=== PATIENT | female | born 1980 | race Caucasian/White ===

== ENCOUNTER 2018-02-27 07:17 | Emergency (ER) | payer SELFPAY ==
[~2018-02-27] VITALS: Ht 162.6 cm; Wt 104.5 kg
[~2018-02-27 07:17] MED LIST: CLINDAMYCIN150 MG PO; CORTISPORIN OTI10 ML OT; NORCO 325 MG-51 TAB PO; SYNTHROID 0.0.025 MG PO
[2018-02-27 07:24] VITALS: BP 160/95
[2018-02-27 08:10] VITALS: PULSE 93; TEMP 97.9
== END 2018-02-27 08:06 | disposition home or self-care (01) ==
LOC: COL.ER 07:17
DX: S39.012A Strain of muscle, fascia and tendon of lower back, initial encounter (principal); H61.22 Impacted cerumen, left ear; H60.91 Unspecified otitis externa, right ear; F17.210 Nicotine dependence, cigarettes, uncomplicated; F12.90 Cannabis use, unspecified, uncomplicated; X58.XXXA Exposure to other specified factors, initial encounter

== ENCOUNTER → 2021-07-20 | Outpatient (CLI) | payer OTHER | LOC: COL.RAD 07:55 | DX: M47.812 Spondylosis without myelopathy or radiculopathy, cervical region (principal) | CPT/HCPCS: A9585 ==

== ENCOUNTER 2023-12-23 02:21 | Inpatient (IN) | payer SELFPAY ==
[~2023-12-23] VITALS: Ht 162.6 cm; Wt 83.4 kg
[2023-12-23] VITALS (8 sets, daily range): BP systolic 128–163; BP diastolic 85–104; PULSE 78–93; TEMP 96.8–98.5
[2023-12-23] MEDS ORDERED: fentaNYL 50 MCG/ML 2 ML VIAL IV ONE (02:45)
[2023-12-23 03:00] LABS: BASO # 0.1 K/mm3 (0.0-0.2); BASO % 0.6 % (0.0-2.0); EOS # 0.3 K/mm3 (0.0-0.7); EOS % 2.3 % (0.0-4.0); GRAN # 9.6 K/mm3 (1.4-6.5); GRAN % 68.9 % (42.2-75.2); HEMOGLOBIN 11.7 g/dl (12.5-16.0); LYMPH # 2.9 K/mm3 (1.2-3.4); MEAN CELL VOLUME 86 fl (80.0-100.0); MEAN CORPUSCULAR HEMOGLOBIN 28 pg (27-31); MEAN CORPUSCULAR HGB CONC 33 g/dl (33.0-37.0); MEAN PLATELET VOLUME 11.9 fl (7.4-10.4); MONO % 6.9 % (1.7-9.3); PLATELET COUNT 228 K/mm3 (130-400); RED BLOOD COUNT 4.15 M/mm3 (4.10-5.30); REDCELL DISTRIBUTION WIDTH-CV 12.8 % (11.5-14.5)
[2023-12-23 03:01] LABS: HEMATOCRIT 35.5 % (37.0-47.0)
[2023-12-23 03:18] LABS: ALANINE AMINOTRANSFERASE 14 U/L (0-55); ALBUMIN 3.3 gm/dL (3.5-5.0); ALKALINE PHOSPHATASE 111 U/L (40-150); ANION GAP 13 mmol/L (7-16); AST,SGOT 7 U/L (5-34); BILIRUBIN,TOTAL 0.2 mg/dL (0.2-1.2); BLOOD UREA NITROGEN < 5 mg/dL (7-19); C-REACTIVE PROTEIN 3.75 mg/dL (0.00-0.50); CHLORIDE 100 mmol/L (98-107); CREATININE, serum 0.91 mg/dL (0.57-1.11); POTASSIUM 4.2 mmol/L (3.5-4.5); SODIUM 133 mmol/L (136-145); TOTAL PROTEIN 6.7 gm/dL (6.2-8.1)
[2023-12-23 03:27] LABS: GLUCOSE 542 mg/dL (70-99)
[2023-12-23] MEDS ORDERED: NS 1,000 ML IV ONE (03:31)
[2023-12-23] MEDS ORDERED: NS 1,000 ML IV SCH ×2 (04:15)
[2023-12-23] MEDS ORDERED: Insulin Human Regular/NS 100 ML IV SCH (04:15)
[2023-12-23 04:47] LABS: MAGNESIUM 1.8 mg/dL (1.6-2.6); PHOSPHOROUS 2.7 mg/dL (2.3-4.7)
--- NOTE | 2023-12-23 05:16 | NUR ---
Vancomycin Initial Dosing Pharmacy Note Ordering provider: Lawson Rosales MD Indication/duration: Labial abscess x 5 days Relevant comorbidities: UNK LABS: WBC = 13.9, SCr = 0.91 Recommendation: Will draw troughs and follow levels. Loading dose: 1.5 grams Maintenance dose: 1.25 grams every 12 hours Trough goal: 10-15 ug/mL
[2023-12-23] MEDS ORDERED: Morphine 4 MG/ML VIAL IV PRN (05:30)
[2023-12-23] MEDS ORDERED: Acetaminophen 500 MG TAB PO SCH (05:30)
[2023-12-23] MEDS ORDERED: Ondansetron 4 MG/2 ML VIAL IV PRN (05:30)
--- NOTE | 2023-12-23 06:34 | NUR ---
0500: PT ARRIVED FROM THE er AT THIS TIME, VANCOMYCIN RUNNING AT THIS TIME. AFEBRILE, VSS, PT ALERT AND TALKATIVE. COURTNEY SENIOR DIRECTOR INSIGHT UP TO SEE THE PT AND INTERVIEW. NO ORDERS ON PT AT THIS TIME.
[2023-12-23 06:53] LABS: ANION GAP 11 mmol/L (7-16); BLOOD UREA NITROGEN < 5 mg/dL (7-19); CALCIUM 8.5 mg/dL (8.4-10.2); CHLORIDE 104 mmol/L (98-107); CREATININE, serum 0.76 mg/dL (0.57-1.11); GLUCOSE 320 mg/dL (70-99); POTASSIUM 3.8 mmol/L (3.5-4.5); SODIUM 135 mmol/L (136-145)
[2023-12-23] MEDS ORDERED: Nicotine 21 MG DAILY PATCH TD SCH (09:00)
[2023-12-23 09:39] LABS: ANION GAP 7 mmol/L (7-16); BLOOD UREA NITROGEN < 5 mg/dL (7-19); CALCIUM 7.5 mg/dL (8.4-10.2); CHLORIDE 109 mmol/L (98-107); CREATININE, serum 0.62 mg/dL (0.57-1.11); GLUCOSE 195 mg/dL (70-99); POTASSIUM 3.3 mmol/L (3.5-4.5); SODIUM 137 mmol/L (136-145)
[2023-12-23] MEDS ORDERED: *Potassium Replacement Protocol MC SCH (10:00)
[2023-12-23] MEDS ORDERED: Potassium Bicarbonate/Citrate 20 MEQ Effervescent TAB PO SCH (10:00)
[2023-12-23] MEDS ORDERED: Insulin Glargine-ygfn (Lantus) SQ SCH (10:15)
[2023-12-23] MEDS ORDERED: Glucagon 1 MG VIAL IM PRN (10:15)
[2023-12-23] MEDS ORDERED: Dextrose (Glucose) 15 GM (4 x 3.75 GM) Chewable TABLET PACK PO PRN (10:15)
[2023-12-23] MEDS ORDERED: Dextrose 50% Water 25 GM/50 ML SYRINGE IV PRN (10:15)
--- NOTE | 2023-12-23 10:27 | NUR ---
psychotherapist social worker met with pt to discuss discharge planning. She reports she lives with her , Jcarlos [phone] in [place]. Pt states she does not have a PCP, but went to [facility] when she first moved here. SW provided list of PCP's and urged her to go to the [facility] again as she does not have insurance. Pt obtains medications from [facility] with no difficulties. She reports to be independent with ADLS and use no DME. She does not have a DPOA-HC, but was interested in reviewing it. SW provided copy to pt to review. Pt reports she does not have insurance and works, but is unable to qualify for Medicaid. YESENIA advised senior financial will meet with pt to provide assistance. YESENIA informed senior financial, Kaylee to meet with pt due to self pay. Discharge Plan: home
--- NOTE | 2023-12-23 11:15 | NUR ---
Patient stated she didnt know she was a diabetic but her mom is a diabetic so she knows a little bit about diabetes. she stated that she wanted to be able to eventually control her numbers with diet and excercise. she understands she will most likely be d/cing on insulin. education provided about when to check BG levels. simple education provided on label reading and carb counting. patient does not have a PCP at this time so i gave her a copy of our referral form to take to her pcp if she wants to see us outpatient. will reach out to SW about this as well so i can help patient get into see us outpatient. initial education folder provided for patient to keep and take home. halle, msn, rn
[2023-12-23] MEDS ORDERED: Insulin Lispro (HumaLOG) SQ SCH (12:00)
--- NOTE | 2023-12-23 13:53 | NUR ---
CONSULTED SURIGICAL ASSOC. DR DAVIS FOR CONSULT. STATED HE WANTED OBGYN TO TAKE A LOOK AT [facility] FIRST. THEN CALLED OBGYN , STATED SHE WOULD COME BY FOR CONSULT LATER TODAY. NO NEW ORDERS. PLAN OF CARE ONGOING.
[2023-12-23] MEDS ORDERED: Vancomycin 1.25 GM,Special Dose/Pharmacy Prepared 1.25 GM in NS 250 ML IV SCH (16:00)
[2023-12-23 16:10] LABS: CREATININE, serum 0.71 mg/dL (0.57-1.11); POTASSIUM 4.2 mmol/L (3.5-4.5)
--- NOTE | 2023-12-23 19:51 | NUR ---
EDUATION GIVEN TO MATT HOWE ON WOUND PACKING.
--- NOTE | 2023-12-23 21:18 | NUR ---
Received report from CARLEY Edmonds. Pt is resting in bed with the call light within reach. Pt has NS running at this time. Pt's vitals are stable at this time. Pt has a rankin in place with no kinks in tubing. Will continue pt's care.
[2023-12-24] VITALS (9 sets, daily range): BP systolic 133–155; BP diastolic 79–98; PULSE 80–91; TEMP 98.2–98.7
[2023-12-24 05:17] LABS: ALBUMIN 2.7 gm/dL (3.5-5.0); BILIRUBIN,TOTAL 0.2 mg/dL (0.2-1.2); CREATININE, serum 0.66 mg/dL (0.57-1.11); POTASSIUM 4.1 mmol/L (3.5-4.5); TOTAL PROTEIN 5.8 gm/dL (6.2-8.1)
[2023-12-24 06:11] LABS: BASO % 0.4 % (0.0-2.0); EOS # 0.3 K/mm3 (0.0-0.7); EOS % 3.5 % (0.0-4.0); GRAN # 5.5 K/mm3 (1.4-6.5); GRAN % 60.3 % (42.2-75.2); HEMOGLOBIN 10.6 g/dl (12.5-16.0); LYMPH # 2.8 K/mm3 (1.2-3.4); LYMPH % 30.5 % (20.0-51.0); MEAN CELL VOLUME 87 fl (80.0-100.0); MEAN CORPUSCULAR HEMOGLOBIN 28 pg (27-31); MEAN CORPUSCULAR HGB CONC 32 g/dl (33.0-37.0); MONO # 0.5 K/mm3 (0.1-0.6); MONO % 5.1 % (1.7-9.3); PLATELET COUNT 237 K/mm3 (130-400); REDCELL DISTRIBUTION WIDTH-CV 13.1 % (11.5-14.5)
--- NOTE | 2023-12-24 06:48 | NUR ---
Pt had an uneventful night. Pt's vitals have been stable throughout the night. Pt has NS running at this time. Pt complained of some pain in the vaginal/labia area and also of a migraine. Tylenol was given and seemed to help with the vaginal/labia pain. Pt had adequate urine output and the rankin tubing has no kinks in tubing. Will give report to day shift nurse.
--- NOTE | 2023-12-24 07:10 | NUR ---
Report received from CARLEY Kohler. Pt reports not sleeping well last night. Reports still having pain in labia and headache after having tylenol around 0530. Rates pain /10. Will contact provider for pain relief orders. NS infusing at 150ml/hr to left FA. Conn catheter to dependent drainage with clear yellow urine draining. Pt informed that wound care will come and assess labia abcess this AM. Offers no further complaints. Call light in reach.
--- NOTE | 2023-12-24 10:29 | NUR ---
Initial visit: Patient states she is feeling much better and thanked Electric Serviceman for asking and asked Electric Serviceman to keep her and her family in her prayers.
--- NOTE | 2023-12-24 13:23 | NUR ---
Pt transfered to room 352. Report given to CARLEY Omer. Pt in possession of all belongings at time of transfer.
--- NOTE | 2023-12-24 13:45 | NUR ---
Pt transfered from ICU via WC. Pt settled into room and oriented to call light/bed controls. Pt is A&Ox4. VSS. S1S2 with clear lung sounds. ABD is rounded, soft, and non-tender. Pt denies pain, n/v, headache, dizziness. Pt reports mild discomfort in perineal area due to wound. Pulses palpable in all 4 extremities. No edema. Pt has steady gait and strength. Pt is standby assist. Pt has Conn cath in place with clear, yellow urine. Wound on R labia has drainage with iodiform dressing. Per wound care, change once per day. Wound care changed dressing this AM. Pt to wear mesh underwear with pad and change pad at least twice per day, or PRN. Pt requested shower, PCT aided Pt with covering IV in L forearm - INT. Pt back in bed and comfortable. Pt requested to be left alone to get some rest. Pt has call light in reach.
--- NOTE | 2023-12-24 15:09 | NUR ---
pest control worker helper attended clinical rounding and was informed pt can transfer to the medical floor today. YESENIA was informed pt will need daily dressing changes with packing as reccomended by Wound CareYesenia. YESENIA informed the team pt does not have insurance. YESENIA called [facility] and was informed they cannot do dressing changes. SW called [facility] and they cannot provide wound care. YESENIA spoke with [facility] Dept. and was informed their Reproductive RN was not available and took a message. She informed SW they have not done this before. YESENIA called Yesenia Gomez's office [phone] and left a message for Yesenia regarding reccomendations. YESENIA spoke with Director Shira and was informed Yesenia would be willing to provide education to pt and person providing dressing changes tomorrow during rounding around 8-10am and in the [facility] at 10am or from 2-3:30pm. YESENIA and CARLEY Hunter met with pt to provide information. She reports her gets queasy and cannot do the changes. She states her [id number] was willing, but she has a friend who works in the hospital she will ask. YESENIA provided her information to call as soon as this is done so the pt can get connected with wound care nurse by tomorrow. YESENIA notes Dr. Ha was aware of the above difficulties. YESENIA spoke with nonprofit financial controller, Kaylee and was informed pt will not qualify for Medicaid, but they completed a FAA and she is just wanting on bank statements. Discharge Plan: home with wound care education provided
--- NOTE | 2023-12-24 16:29 | NUR ---
Patient is aware that she will need to have a support person learn to complete daily dressings and confirms that her person will be at the hospital on 12/25/23 at 8:00am and also at 10:00. Worker spoke with Yesenia, wound care nurse and confirmed that she will teach dressing change tomorrow in the hospital and , in the [facility].
[2023-12-25 03:22] VITALS: BP 133/74; PULSE 78; TEMP 97.5
[2023-12-25 03:44] LABS: BASO # 0.1 K/mm3 (0.0-0.2); BASO % 0.6 % (0.0-2.0); EOS # 0.3 K/mm3 (0.0-0.7); EOS % 3.5 % (0.0-4.0); GRAN # 4.2 K/mm3 (1.4-6.5); GRAN % 52.3 % (42.2-75.2); HEMOGLOBIN 10.4 g/dl (12.5-16.0); MEAN CELL VOLUME 85 fl (80.0-100.0); MEAN CORPUSCULAR HEMOGLOBIN 28 pg (27-31); MEAN CORPUSCULAR HGB CONC 33 g/dl (33.0-37.0); MEAN PLATELET VOLUME 11.7 fl (7.4-10.4); MONO # 0.5 K/mm3 (0.1-0.6); MONO % 6.4 % (1.7-9.3); PLATELET COUNT 233 K/mm3 (130-400); RED BLOOD COUNT 3.76 M/mm3 (4.10-5.30); REDCELL DISTRIBUTION WIDTH-CV 13.2 % (11.5-14.5)
[2023-12-25 03:53] LABS: HEMATOCRIT 31.8 % (37.0-47.0)
[2023-12-25 03:58] LABS: ALANINE AMINOTRANSFERASE 14 U/L (0-55); ALBUMIN 2.8 gm/dL (3.5-5.0); ALKALINE PHOSPHATASE 77 U/L (40-150); ANION GAP 6 mmol/L (7-16); AST,SGOT 12 U/L (5-34); BILIRUBIN,TOTAL 0.2 mg/dL (0.2-1.2); BLOOD UREA NITROGEN < 5 mg/dL (7-19); CALCIUM 7.5 mg/dL (8.4-10.2); CHLORIDE 111 mmol/L (98-107); CREATININE, serum 0.61 mg/dL (0.57-1.11); GLUCOSE 125 mg/dL (70-99); POTASSIUM 3.5 mmol/L (3.5-4.5); SODIUM 139 mmol/L (136-145); TOTAL PROTEIN 5.8 gm/dL (6.2-8.1)
[2023-12-25 07:08] VITALS: BP 163/93; PULSE 85; TEMP 97.9
[2023-12-25] MEDS ORDERED: Potassium Bicarbonate/Citrate 20 MEQ Effervescent TAB PO SCH (08:00)
[2023-12-25] MEDS ORDERED: Insulin Glargine-ygfn (Lantus) SQ SCH (09:00)
[2023-12-25] MEDS ORDERED: BACTRIM DS 8001 TAB PO (10:16)
[2023-12-25] MEDS ORDERED: CLEOCIN HCL300 MG PO (10:17)
[2023-12-25] MEDS ORDERED: GLUCOSE TEST ST1 DEV MC (10:26)
[2023-12-25] MEDS ORDERED: NOVOLOG FLEX100 U/ML SQ ×2 (10:26→13:39)
[2023-12-25] MEDS ORDERED: INSULIN PEN NE1 EAC1 MC (10:26)
[2023-12-25] MEDS ORDERED: BD ALCOHOL1 SWA MC (10:26)
[2023-12-25] MEDS ORDERED: GLUCAGON EMERGEN1 M1 SQ (10:26)
[2023-12-25] MEDS ORDERED: LANCETS MC (10:26)
[2023-12-25] MEDS ORDERED: FREESTYLE PREC1 EAC5 MC (10:26)
[2023-12-25] MEDS ORDERED: INSULIN GL100 UNIT/2 SQ ×2 (10:26→13:39)
--- NOTE | 2023-12-25 15:09 | NUR ---
PT WAS TAUGHT HOW TO PACK LABIAL ABSCESS WOUND BY WOUND CARE TEAM THIS MORNING. THEY WILL MEET WITH AND MOTHER IN LAW WITH THE PATIENT 12/26/23 IN [facility] TO GO OVER IT AGAIN TO ENSURE BOTH FAMILY MEMBERS ARE FAMILIAR WITH PROCESS.
--- NOTE | 2023-12-25 15:10 | NUR ---
PT CALLED DEPARTMENT AND STATED THAT HER PACKING HAD COME OUT WHILE SHE WAS RUNNING ERRANDS AND THAT NO ONE WOULD BE HOME UNTIL 1700 OR LATER. OIL PROGRAM COMPLIANCE SPECIALIST TALKED WITH BUSINESS ADVISOR AND CANCER GENETICS ASSISTANT AND GOT AUTHORIZATION TO HAVE PT COME IN FOR OIL PROGRAM COMPLIANCE SPECIALIST TO REPACK ABSCESS. PT WAS DIRECTED TO BRING SUPLLIES SHE WAS SENT HOME WITH, WHICH SHE DID. OIL PROGRAM COMPLIANCE SPECIALIST BROUGHT PT INTO EMPTY ROOM AND REPACKED ABSCESS. PT THEN ESCORTED OUT.
--- NOTE | 2023-12-25 16:10 | NUR ---
Patient Biller met with patient to review discharge plan. Patient stated she has an appointment with Yesenia, track template maker tomorrow and will meet her in the [facility]. Patient plans to bring her and mother in law. YESENIA also collaborated [facility] who will start wound care for patient on Saturday. YESENIA informed patient that Lashanda advised she can come in Saturday morning between [id number]. YESENIA contacted [facility] and scheduled patient a follow up appointment on 01/01/24 at 1430. YESENIA also talked about Diabetes Ed and the RN stated she is familiar and can give a referral.
== END 2023-12-25 12:45 | disposition home or self-care (01) | DRG 853 ==
LOC: COL.ER 02:21 → ICU 04:16 → MEDICAL 12-24 13:35
PROVIDERS: Emergency Medicine; Internal Medicine; Nurse Practitioner Family; ADMIT Internal Medicine
PROC: 0U9MXZZ Drainage of Vulva, External Approach (ICD-10-PCS; principal; 2023-12-23)
DX: A41.9 Sepsis, unspecified organism (principal); E11.00 Type 2 diabetes mellitus with hyperosmolarity without nonketotic hyperglycemic-hyperosmolar coma (NKHHC); N76.4 Abscess of vulva; Z68.41 Body mass index [BMI] 40.0-44.9, adult; N76.2 Acute vulvitis; F17.210 Nicotine dependence, cigarettes, uncomplicated; E66.01 Morbid (severe) obesity due to excess calories; D64.9 Anemia, unspecified; E87.6 Hypokalemia; Z88.0 Allergy status to penicillin
CPT/HCPCS: J1650; J1815; J3010; J3370; J7030; J7050

== ENCOUNTER 2023-12-26 10:02 | Outpatient (CLI) | payer SELFPAY ==
[~2023-12-26 10:02] MED LIST changes: +BACTRIM DS 8001 TAB PO; +BD ALCOHOL1 SWA MC; +CLEOCIN HCL300 MG PO; +FREESTYLE PREC1 EAC5 MC; +GLUCAGON EMERGEN1 M1 SQ; +GLUCOSE TEST ST1 DEV MC; +INSULIN GL100 UNIT/2 SQ; +INSULIN PEN NE1 EAC1 MC; +LANCETS MC; +NOVOLOG FLEX100 U/ML SQ
[2023-12-26 10:17] VITALS: BP 136/81; PULSE 84; TEMP 98.6
== END 2023-12-26 11:00 | disposition home or self-care (01) ==
LOC: EUO 10:02
DX: R60.0 Localized edema (principal); E11.9 Type 2 diabetes mellitus without complications; Z98.890 Other specified postprocedural states; F17.210 Nicotine dependence, cigarettes, uncomplicated